=== PATIENT | male | born 1990 | race Caucasian/White ===

== ENCOUNTER 2025-03-12 00:12 | Emergency (ER) | payer SELFPAY ==
[2025-03-12 00:20] VITALS: BP 147/93; PULSE 97; RESP 18; TEMP 98.3; BMI 36.8
[2025-03-12] MEDS ORDERED: ONDANSETRON 4 MG/2 ML VIAL ONE (00:22)
[2025-03-12] MEDS ORDERED: ACETAMINOPHEN INJECTION 100 ML ONE (00:22)
[2025-03-12] MEDS: ACETAMINOPHEN 1000 MG/100 ML BAG IVPB ONE (00:30)
[2025-03-12] MEDS: ONDANSETRON 4 MG/2 ML VIAL IVPUSH ONE (00:30)
[2025-03-12] MEDS: SODIUM CHLORIDE 0.9% 1000 ML INFUS.BAG IV ONE ×2 (00:30→02:31)
[2025-03-12 01:29] LABS: ABSOLUTE IMMATURE GRANULOCYTES 0.04 x10^3/uL (0.0-0.031); BASOPHILS # 0.02 x10^3/uL (0.01-0.08); EOSINOPHIL % 0.1 % (0.8-7.0); EOSINOPHILS # 0.01 x10^3/uL (0.04-0.54); HEMOGLOBIN 16.3 g/dL (13.7-17.5); MCHC 36.2 g/dl (32.3-36.5); MEAN CELL VOLUME 89.8 fl (79.0-92.2); MEAN PLT VOLUME 9.9 fl (9.4-12.4); MONOCYTE # 0.44 x10^3/uL (0.30-0.82); MONOCYTE % 4.9 % (5.3-12.2); PLATELET COUNT 233 x10^3/uL (163-337); RDW 12.7 % (12.0-15.6)
[2025-03-12] MEDS: FAMOTIDINE 20 MG/50 ML IVPB 20 MG/50 ML MG IVPB ONE (02:31)
[2025-03-12 02:33] LABS: POTASSIUM 3.7 mmol/L (3.5-5.1)
[2025-03-12 02:35] LABS: ALBUMIN 4.2 g/dl (3.4-5.0); BLOOD UREA NITROGEN 14.4 mg/dL (7-18); CALCIUM 9.3 mg/dL (8.5-10.1)
[2025-03-12 02:38] LABS: CREATININE 1.1 mg/dL (0.55-1.3)
[2025-03-12 02:40] LABS: BILIRUBIN,TOTAL 0.8 mg/dL (0.2-1); TOT PROT 6.9 g/dl (6.4-8.2)
[2025-03-12 02:46] LABS: HCV DIAGNOSTIC IN-HOUSE W/RFLX NON-REACTIVE (NONREACTIVE)
[2025-03-12 02:47] LABS: HIV INTERPRETATION NEGATIVE (NEGATIVE)
== END 2025-03-12 03:51 | disposition home or self-care (01) ==
LOC: FER 00:12
PROC: 3E033GC Introduction of Other Therapeutic Substance into Peripheral Vein, Percutaneous Approach (ICD-10-PCS; principal; 2025-03-12)
PROC: 3E033GC Introduction of Other Therapeutic Substance into Peripheral Vein, Percutaneous Approach (ICD-10-PCS; 2025-03-12)
PROC: 3E033NZ Introduction of Analgesics, Hypnotics, Sedatives into Peripheral Vein, Percutaneous Approach (ICD-10-PCS; 2025-03-12)
DX: K52.9 Noninfective gastroenteritis and colitis, unspecified (principal); R11.2 Nausea with vomiting, unspecified; R10.13 Epigastric pain; R14.0 Abdominal distension (gaseous)
CPT/HCPCS: 36415; 80053; 83690; 85025; 85027; 86803; 87389; 99284-25; J0131